=== PATIENT | male | born 1955 | race Caucasian/White ===

== ENCOUNTER 2016-11-07 21:40 | Inpatient (IN) | payer BC ==
--- NOTE | ~2016-11-07 | SLEEP ---
[facility] [place] [id number] [facility] [place]. [address] NAME: CAROLE BOWEN : 53 STATUS : DIS IN PAT#: [id number] AGE: 61 ADM/REG DATE : 11/07/16 MR#: [id number] REPORT SERV DATE: 11/14/16 DICTATED BY: JUDY ESCOBAR DATE: 11/11/16 REPORT STATUS : Draft TRANSCRIBED BY: MODL DATE: 11/11/16 SLEEP CONSULT NOTE Carole is a 61-year-old male, who was admitted with rhabdomyolysis. He has a several-month history of snoring, occasional non-refreshing sleep, and occasional daytime hypersomnolence. He endorses an [place] Sleepiness Scale of 5. There have been some reported possible pauses in sleep. He denies any routine difficulty falling asleep or maintaining sleep. He denies symptoms compatible with restless legs syndrome or periodic limb movement disorder. He did undergo overnight pulse oximetry on 08/08/2016, which was compatible with moderate sleep-disordered breathing. This was followed by baseline polysomnogram on 11/04/2016, where he was found to have moderate supine position accentuated sleep apnea syndrome with an apnea-hypopnea index of 29.1 events per hour. He desaturated to a arnulfo of 83%, had associated disturbed sleep architecture. This was followed by a successful CPAP titration on 11/06/2016, where he was successfully titrated utilizing CPAP at 11 cm H2O pressure. The patient stated the quality of sleep was perhaps slightly more refreshing than that obtained at home. His examination is notable for a class 3 Mallampati airway. The tongue was slightly enlarged today. The patient had approximately 1 mm of mandibular overjet. Dr. Bowen's elmnvbjj-pc-inwxys degree of sleep-disordered breathing does warrant active intervention. We discussed the possibility of ENT surgical treatment or CPAP therapy today. We mutually agreed on pursuing CPAP therapy. We will set up CPAP therapy today at 11 cm H2O pressure at above derived setting. He understands the risks of untreated sleep apnea syndrome. He will follow up with us in approximately 6 weeks or sooner. RICKY/LEONARDO Judy Escobar M.D. Diplomate [place] [employer] and Neu[employer] / [id number] CC: Albert Terrazas MD [address] [address] NAME: CAROLE BOWEN : 53 STATUS : DIS IN PAT#: [id number] AGE: 61 ADM/REG DATE : 11/07/16 MR#: [id number] REPORT SERV DATE: 11/14/16 DICTATED BY: JUDY ESCOBAR DATE: 11/11/16 REPORT STATUS : Draft TRANSCRIBED BY: MODL DATE: 11/11/16 Juvencio Tillman M.D.
--- NOTE | ~2016-11-07 | HP ---
History And Physical [address] [address] NAME: CAROLE CHAN : 53 STATUS : ADM Amos PAT#: [id number] AGE: 61 ADM/REG DATE : 11/07/16 MR#: [id number] REPORT SERV DATE: 11/08/16 DICTATED BY: HILTON KING DATE: 11/08/16 REPORT STATUS : Draft TRANSCRIBED BY: MODL DATE: 11/08/16 DATE OF ADMISSION: 11/07/2016 CHIEF COMPLAINT: A 61-year-old male, presenting with bilateral arm swelling, pain, and evidence of severe rhabdomyolysis. HISTORY OF PRESENT ILLNESS: The patient's history was obtained through careful interview with the patient, coupled with review of [employer] and [facility] [employer] [facility] [employer] medical records. The patient two days prior to admission had done difficult workout at a [employer] gym. He was doing a new exercise chin ups, this apparently caused his arm to be quite sore. 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 He describes left greater than right arm swelling and tightness quality pain, 5 to 6/10 severity. By the end he was done with the day of work and procedures he noticed that he could not even bend his arms, they were so swollen and tight. Then, as he was preparing to go home he noticed that his urine was dark brown in color. He has had no leg symptoms. REVIEW OF SYSTEMS: A 14-point review of systems was obtained and was negative. PAST MEDICAL HISTORY: 1. Obstructive sleep apnea, being evaluated for CPAP. 2. Elevated cholesterol. 3. Hypothyroidism. 4. Nephrolithiasis seen by Dr. Amador. 5. Aspiration pneumonia after procedure in 2004. 6. Colon polyps seen by Dr. Barakat. 7. No cardiac disease. PAST SURGICAL HISTORY: 1. Appendectomy. 2. Right knee surgery. 3. Bilateral shoulder operations. 4. 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 ALLERGIES: NO KNOWN DRUG ALLERGIES. History And Physical [address] [address] NAME: CAROLE CHAN : 53 STATUS : ADM Amos PAT#: [id number] AGE: 61 ADM/REG DATE : 11/07/16 MR#: [id number] REPORT SERV DATE: 11/08/16 DICTATED BY: HILTON KING DATE: 11/08/16 REPORT STATUS : Draft TRANSCRIBED BY: LEONARDO DATE: 11/08/16 SOCIAL HISTORY: Drinks alcohol socially. No tobacco abuse. He is . 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 Has one 12-year-old son. FAMILY HISTORY: Father with diabetes. Mother with heart disease. CURRENT MEDICATIONS: 1. Levothyroxine 88 mcg p.o. daily. 2. Mobic 15 mg daily. 3. Metformin 500 mg p.o. b.i.d. 4. Crestor 20 mg p.o. daily. PHYSICAL EXAMINATION: VITAL SIGNS: Temperature 98.3, pulse 80, blood pressure 141/80, respiratory rate 18, and O2 saturation 100% on room air. GENERAL: A pleasant, cooperative male, in no evidence of acute distress. HEENT: Nares are patent. Oropharynx is clear of obstruction. Moist mucous membranes. No intraoral lesions. NECK: Trachea midline. No thyromegaly. LYMPH: No cervical lymphadenopathy. No supraclavicular lymphadenopathy. No axillary lymphadenopathy bilaterally. RESPIRATORY: Clear to auscultation at bases. No wheezes, rales, or rhonchi. Normal respiratory effort. CARDIOVASCULAR: Regular rate and rhythm. No murmurs, rubs, or gallops. No lower extremity edema is appreciated. ABDOMEN: Soft, nontender, and nondistended. No hepatosplenomegaly. DERMATOLOGICAL: Warm and dry extremities. No pallor. No cyanosis. The patient's right and left upper extremities show tightness of the skin and swelling of the arms. PSYCHIATRIC: Normal affect. Good mood. Alert and oriented x3. LABORATORY DATA: White blood cell count 9.0, hemoglobin 16, hematocrit 49, and platelets 218. Sodium 139, potassium 4.3, chloride 104, bicarb 29, BUN 32 creatinine 1.27 from baseline creatinine of 0.8, and glucose 88. CPK 120,131. Urinalysis negative for infection. STUDIES: A stat venous Doppler ultrasound of the bilateral upper extremity showed no DVT. ASSESSMENT AND PLAN: 1. Severe rhabdomyolysis. CPK of greater than 120,000. Place on IV fluids. Monitor closely. Discussed the case with Dr. Watkins, geological drafter. 2. Bilateral arm edema. Monitor for signs of compartment syndrome. Negative scan for DVT. 3. Acute kidney injury. Monitor closely. History And Physical [address] [place]. [address] NAME: CAROLE CHAN : 53 STATUS : ADM Amos PAT#: [id number] AGE: 61 ADM/REG DATE : 11/07/16 MR#: [id number] REPORT SERV DATE: 11/08/16 DICTATED BY: HILTON KING DATE: 11/08/16 REPORT STATUS : Draft TRANSCRIBED BY: MODL DATE: 11/08/16 KPL/MODL Hilton King M.D. / [id number] CC: Jolene Mckay FNP Mark Heinsohn, M.D.
--- NOTE | ~2016-11-07 | IDS ---
Interim Discharge Summary [facility] [address] [place]. [address] NAME: CAROLE CHAN : 53 STATUS : ADM IN [facility]#: [id number] AGE: 61 ADM/REG DATE : 11/07/16 MR#: [id number] REPORT SERV DATE: 11/12/16 DICTATED BY: ALBERT TERRAZAS DATE: 11/11/16 REPORT STATUS : Draft TRANSCRIBED BY: MODL DATE: 11/11/16 ADMISSION DATE: 11/07/2016 DISCHARGE DATE: WORKING DIAGNOSES: 1. Severe rhabdomyolysis with creatine phosphokinase level of 120,000 on admission. 2. Bilateral upper extremity edema. 3. Acute kidney injury, present on admission, resolved. CONSULTS: None. PROCEDURES: None. 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 The patient was admitted with a CPK level of 120,000, and with aggressive IV fluid resuscitation, the patient's CPK steadily has improved now to 29,000. The patient is tolerating IV fluid hydration well and will continue until his CPK level falls below 5000. The patient has had bilateral upper extremity edema on initial presentation that is also improving with IV fluid hydration. They were imaged with ultrasound and negative for DVT. Vernell/LEONARDO Albert Terrazas MD / [id number] CC: Albert Terrazas MD
--- NOTE | ~2016-11-07 | DS ---
Discharge Summary [facility] [address] [facility] [place]. [address] NAME: CAROLE CHAN : 53 STATUS : DIS IN PAT#: [id number] AGE: 61 ADM/REG DATE : 11/07/16 MR#: [id number] REPORT SERV DATE: 11/14/16 DICTATED BY: JR. BILLY WILLIAM JOHN DATE: 11/13/16 REPORT STATUS : Draft TRANSCRIBED BY: MODL DATE: 11/13/16 ADMISSION DATE: 11/07/2016 DISCHARGE DATE: 11/13/2016 DISCHARGE DIAGNOSES: Include: 1. Severe rhabdomyolysis. 2. Bilateral upper extremity edema due to exercise. 3. Acute kidney injury. OPERATIONS/PROCEDURES AND TREATMENTS: Include venous Doppler ultrasound, bilateral upper extremities which was negative for deep vein thrombosis. DISCHARGE MEDICATIONS: Include: 1. Synthroid 88 mcg orally daily. 2. Crestor 20 mg orally daily. 3. Recommend holding metformin until CK is normal. HOSPITAL COURSE: The patient is a 61-year-old male who presented to emergency room on 11/08/2016 with bilateral arm swelling, pain, and evidence of severe rhabdomyolysis. Two days prior to the admission, the patient did difficult work out at the [employer] with chin ups causing his arms to be quite sore. He said initially he did not feel bad, then he noticed some soreness in his arms, was working and did a very complicated procedure and developed arm swelling on the right greater than the left eventually presenting to the emergency room where initial exam showed temperature 98.3, heart rate 80, respiratory rate of 18, blood pressure 141/80. His right and left forearms were swollen with tightness of the skin. Initial laboratory showed a BUN of 32, creatinine 1.3, with a baseline creatinine of 0.8, and his creatine kinase of 120,000. For full details, please see Dr. Lizarraga's excellent dictated history and physical. The patient was admitted to [address] [place] [address]. He was IV fluid hydrated and creatine kinase, BUN and creatinine were monitored. The patient developed some lower extremity edema due to the excessive IV fluids. All markers improved since admission. At discharge, significant laboratory markers included a BUN of 15, creatinine of 0.96, and a creatine kinase of 91,000. 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 He discussed his case with Nephrology as well as his primary care provider and desired discharge for self lab monitoring. He understands the risk and the recommendation for IV fluids through a creatine kinase of less than 5000. We agreed the patient be discharged home today 11/13/2016. We will follow up with Dr. Tillman next week. He will also have creatine kinase and BMP drawn daily to monitor his renal function as well as creatine kinase. Additionally, would recommend holding his metformin until creatine kinase, BUN, and creatinine are normal given the risk of lactic acidosis with metformin. For discharge exam and laboratory, please see daily progress note. DISCHARGE DIET: Regular. ACTIVITY: As tolerated. The case was discussed with Dr. Tillman who plans to do connective Discharge Summary [address] [address] NAME: CAROLE CHAN : 53 STATUS : DIS IN [facility]#: [id number] AGE: 61 ADM/REG DATE : 11/07/16 MR#: [id number] REPORT SERV DATE: 11/14/16 DICTATED BY: JR. BILLY WILLIAM JOHN DATE: 11/13/16 REPORT STATUS : Draft TRANSCRIBED BY: LEONARDO DATE: 11/13/16 tissue workup at discharge with Dr. Verduzco. WJF/LEONARDO Antonio Billy Jr, MD / [id number] CC: Antonio Billy Jr, MD [place] [facility]
[2016-11-07 20:44] LABS: BASOPHILS 0.3 %; BASOPHILS ABSOLUTE 0.03 10/3/uL (0.0-0.16); EOSINOPHILS 2.6 %; EOSINOPHILS ABSOLUTE 0.23 10/3/uL (0.0-0.53); ER CBC TAT 0 Hrs 13 Mins; IMMATURE GRANULOCYTES 0.3 %; IMMATURE GRANULOCYTES ABSOLUTE 0.03 10/3/uL (0.0-0.11); LYMPHOCYTES 25.3 %; LYMPHOCYTES ABSOLUTE 2.28 10/3/uL (0.67-4.30); MEAN CORPUSCULAR HEMOGLOB 30.1 pg (26.0-34.0); MEAN CORPUSCULAR VOLUME 88.5 fL (80-100); MEAN PLATELET VOLUME 10.7 fL (9.2-13.0); MONOCYTES 5.9 %; MONOCYTES ABSOLUTE 0.53 10/3/uL (0.21-1.20); NEUTROPHILS 65.6 %; NEUTROPHILS ABSOLUTE 5.91 10/3/uL (2.02-8.40); PLATELET COUNT 218 10/3/uL (150-400); RBC DISTRIBUTION WIDTH 13.7 % (12.0-16.0)
[2016-11-07 20:45] LABS: HEMATOCRIT 48.6 % (40.0-51.0); HEMOGLOBIN 16.5 g/dL (13.6-17.8); MANUAL DIFF NO %; RED CELL COUNT 5.49 10/6/uL (4.7-6.1)
[2016-11-07 21:18] LABS: A/G RATIO 1.2 (0.7-1.9); ALBUMIN 3.7 G/DL (3.5-5.0); CALCIUM, SERUM 8.8 MG/DL (8.5-10.4); CHLORIDE, SERUM 104 MMOL/L (96-112); CO2 (CARBON DIOXIDE) 29 MMOL/L (24-34); CREATININE 1.27 MG/DL (0.70-1.30); GFR AFRICAN AMERICAN 70 ML/MIN (>=60); GFR NON AFRICAN AMERICAN 60 ML/MIN (>=60); GLOBULIN 3.2 G/DL (2.5-4.1); MYOGLOBIN, SERUM 12738 NG/ML (0-85); POTASSIUM, SERUM 4.3 MMOL/L (3.5-5.3); SGOT(AST) 1477 U/L (5-40); SGPT(ALT) 359 U/L (5-65); SODIUM, SERUM 139 MMOL/L (135-148); TOTAL BILIRUBIN 0.5 MG/DL (0-1.2); TOTAL PROTEIN 6.9 G/DL (6.0-8.5)
[2016-11-07 21:19] LABS: ALKALINE PHOSPHATASE 96 U/L (45-117); BUN (BLOOD UREA NITROGEN) 32 MG/DL (6-23); GLUCOSE, SERUM 88 MG/DL (60-99)
[2016-11-07 22:08] LABS: WBC (NOT ORDERED) (RFLEX) 0 (0-5)
[2016-11-07 22:17] LABS: ASCORBIC ACID (UR NOT ORDER) NEG (NEG); BILIRUBIN, URINE NEGATIVE (NEG); ER URINALYSIS TAT 0 Hrs 10 Mins; KETONE, URINE NEGATIVE (NEG); LEUKOCYTE ESTERASE(NOT OR NEG (NEG); NITRITE (URINE) NEG (NEG)
[2016-11-07] MEDS ORDERED: MOBIC15 MG PO (23:58)
[2016-11-07] MEDS ORDERED: CRESTOR20 MG PO (23:59)
[2016-11-07] MEDS ORDERED: SYN88 PO (23:59)
[2016-11-07] MEDS ORDERED: GLUMETZA500 MG PO (23:59)
[2016-11-08 05:48] LABS: CALCIUM, SERUM 8.5 MG/DL (8.5-10.4); CHLORIDE, SERUM 106 MMOL/L (96-112); CO2 (CARBON DIOXIDE) 27 MMOL/L (24-34); CREATININE 1.07 MG/DL (0.70-1.30); GFR AFRICAN AMERICAN 86 ML/MIN (>=60); GFR NON AFRICAN AMERICAN 74 ML/MIN (>=60); PHOSPHORUS, SERUM 3.4 MG/DL (2.5-4.5); POTASSIUM, SERUM 3.8 MMOL/L (3.5-5.3); SGOT(AST) 1121 U/L (5-40); SGPT(ALT) 311 U/L (5-65); SODIUM, SERUM 140 MMOL/L (135-148); TOTAL BILIRUBIN 0.3 MG/DL (0-1.2)
[2016-11-08 06:14] LABS: A/G RATIO 1.2 (0.7-1.9); ALBUMIN 2.9 G/DL (3.5-5.0); ALKALINE PHOSPHATASE 80 U/L (45-117); BUN (BLOOD UREA NITROGEN) 24 MG/DL (6-23); GLOBULIN 2.5 G/DL (2.5-4.1); GLUCOSE, SERUM 150 MG/DL (60-99); TOTAL PROTEIN 5.4 G/DL (6.0-8.5)
[2016-11-08 06:56] LABS: CPK 85550 U/L (0-200)
[2016-11-09 06:11] LABS: BASOPHILS 0.4 %; BASOPHILS ABSOLUTE 0.02 10/3/uL (0.0-0.16); EOSINOPHILS 5.7 %; EOSINOPHILS ABSOLUTE 0.32 10/3/uL (0.0-0.53); HEMOGLOBIN 13.2 g/dL (13.6-17.8); LYMPHOCYTES 33.2 %; LYMPHOCYTES ABSOLUTE 1.85 10/3/uL (0.67-4.30); MEAN CORPUS HGB CONC 33.5 g/dL (32.0-36.0); MEAN CORPUSCULAR HEMOGLOB 29.9 pg (26.0-34.0); MEAN CORPUSCULAR VOLUME 89.3 fL (80-100); MEAN PLATELET VOLUME 10.2 fL (9.2-13.0); MONOCYTES 7.7 %; MONOCYTES ABSOLUTE 0.43 10/3/uL (0.21-1.20); NEUTROPHILS ABSOLUTE 2.96 10/3/uL (2.02-8.40); PLATELET COUNT 191 10/3/uL (150-400); RED CELL COUNT 4.41 10/6/uL (4.7-6.1); WHITE BLOOD CELLS 5.6 10/3/uL (4.5-10.5)
[2016-11-09 06:12] LABS: HEMATOCRIT 39.4 % (40.0-51.0); MANUAL DIFF NO %
[2016-11-09 07:00] LABS: BUN (BLOOD UREA NITROGEN) 22 MG/DL (6-23); CALCIUM, SERUM 8.3 MG/DL (8.5-10.4); CHLORIDE, SERUM 114 MMOL/L (96-112); CO2 (CARBON DIOXIDE) 25 MMOL/L (24-34); GFR AFRICAN AMERICAN 93 ML/MIN (>=60); GFR NON AFRICAN AMERICAN 80 ML/MIN (>=60); POTASSIUM, SERUM 4.4 MMOL/L (3.5-5.3)
[2016-11-09 07:01] LABS: GLUCOSE, SERUM 108 MG/DL (60-99); SODIUM, SERUM 147 MMOL/L (135-148)
[2016-11-09 07:39] LABS: CPK 54825 U/L (0-200)
[2016-11-10 07:15] LABS: CALCIUM, SERUM 7.9 MG/DL (8.5-10.4); CHLORIDE, SERUM 113 MMOL/L (96-112); CO2 (CARBON DIOXIDE) 29 MMOL/L (24-34); CREATININE 0.86 MG/DL (0.70-1.30); GFR AFRICAN AMERICAN 108 ML/MIN (>=60); GFR NON AFRICAN AMERICAN 93 ML/MIN (>=60); GLUCOSE, SERUM 98 MG/DL (60-99); POTASSIUM, SERUM 4.1 MMOL/L (3.5-5.3); SODIUM, SERUM 144 MMOL/L (135-148)
[2016-11-10 07:17] LABS: BUN (BLOOD UREA NITROGEN) 14 MG/DL (6-23)
[2016-11-10 07:45] LABS: CPK 43248 U/L (0-200)
[2016-11-11 05:33] LABS: BUN (BLOOD UREA NITROGEN) 14 MG/DL (6-23); CHLORIDE, SERUM 111 MMOL/L (96-112); CO2 (CARBON DIOXIDE) 26 MMOL/L (24-34); CREATININE 0.84 MG/DL (0.70-1.30); GFR AFRICAN AMERICAN 109 ML/MIN (>=60); GFR NON AFRICAN AMERICAN 94 ML/MIN (>=60); GLUCOSE, SERUM 102 MG/DL (60-99); POTASSIUM, SERUM 3.9 MMOL/L (3.5-5.3); SODIUM, SERUM 143 MMOL/L (135-148)
[2016-11-11 05:35] LABS: CALCIUM, SERUM 8.9 MG/DL (8.5-10.4)
[2016-11-11 05:52] LABS: CPK 29662 U/L (0-200)
[2016-11-12 06:51] LABS: BASOPHILS 0.7 %; BASOPHILS ABSOLUTE 0.03 10/3/uL (0.0-0.16); EOSINOPHILS ABSOLUTE 0.32 10/3/uL (0.0-0.53); HEMATOCRIT 36.4 % (40.0-51.0); HEMOGLOBIN 12.3 g/dL (13.6-17.8); IMMATURE GRANULOCYTES 0.4 %; IMMATURE GRANULOCYTES ABSOLUTE 0.02 10/3/uL (0.0-0.11); LYMPHOCYTES 35.2 %; LYMPHOCYTES ABSOLUTE 1.62 10/3/uL (0.67-4.30); MANUAL DIFF NO %; MEAN CORPUS HGB CONC 33.8 g/dL (32.0-36.0); MEAN CORPUSCULAR HEMOGLOB 29.8 pg (26.0-34.0); MEAN CORPUSCULAR VOLUME 88.1 fL (80-100); MEAN PLATELET VOLUME 10.2 fL (9.2-13.0); MONOCYTES ABSOLUTE 0.32 10/3/uL (0.21-1.20); NEUTROPHILS 49.7 %; NEUTROPHILS ABSOLUTE 2.29 10/3/uL (2.02-8.40); PLATELET COUNT 189 10/3/uL (150-400); RED CELL COUNT 4.13 10/6/uL (4.7-6.1); WHITE BLOOD CELLS 4.6 10/3/uL (4.5-10.5)
[2016-11-12 07:33] LABS: BUN (BLOOD UREA NITROGEN) 16 MG/DL (6-23); CALCIUM, SERUM 8.5 MG/DL (8.5-10.4); CHLORIDE, SERUM 112 MMOL/L (96-112); CO2 (CARBON DIOXIDE) 27 MMOL/L (24-34); CPK 13681 U/L (0-200); CREATININE 0.84 MG/DL (0.70-1.30); GFR AFRICAN AMERICAN 109 ML/MIN (>=60); GFR NON AFRICAN AMERICAN 94 ML/MIN (>=60); GLUCOSE, SERUM 101 MG/DL (60-99); POTASSIUM, SERUM 3.9 MMOL/L (3.5-5.3); SODIUM, SERUM 146 MMOL/L (135-148)
[2016-11-12 14:02] LABS: ANA TITER <1:40 TITER
[2016-11-13 05:42] LABS: BUN (BLOOD UREA NITROGEN) 15 MG/DL (6-23); CALCIUM, SERUM 8.9 MG/DL (8.5-10.4); CHLORIDE, SERUM 108 MMOL/L (96-112); CO2 (CARBON DIOXIDE) 30 MMOL/L (24-34); CPK 9107 U/L (0-200); CREATININE 0.96 MG/DL (0.70-1.30); GFR AFRICAN AMERICAN 98 ML/MIN (>=60); GFR NON AFRICAN AMERICAN 84 ML/MIN (>=60); GLUCOSE, SERUM 101 MG/DL (60-99); POTASSIUM, SERUM 3.7 MMOL/L (3.5-5.3); SODIUM, SERUM 144 MMOL/L (135-148)
== END 2016-11-13 11:14 | disposition home or self-care (01) | DRG 683 ==
LOC: ER 21:40 → 5NO 23:06
PROVIDERS: Emergency Medicine; Hospitalist; Internal Medicine
DX: N17.9 Acute kidney failure, unspecified (principal); M62.82 Rhabdomyolysis; G47.33 Obstructive sleep apnea (adult) (pediatric); E03.9 Hypothyroidism, unspecified; R60.9 Edema, unspecified
CPT/HCPCS: 80048; 80053; 81001; 82550; 83735; 83874; 84100; 84443; 85025; 86039; 93970; 99284; A9270-GY